=== PATIENT | male | born 1930 | race Caucasian/White ===

== ENCOUNTER 2016-11-15 18:28 | Emergency (ER) | payer BC ==
[~2016-11-15] VITALS: Ht 172.7 cm; Wt 73.9 kg
[~2016-11-15 18:28] MED LIST: ACET325T96 PO; ALFU1TAB2 PO; ALUMSUS17 PO; ARTISOL OPL; ESCI1TAB10 PO; IMD2X PO; MAG OX PO; MOML PO; PRED1SUS3 OPR; SIME125C11 PO; TRIA0.1C20 TOP; TYLOTC500 PO; ULT/50 PO
[2016-11-15 18:40] VITALS: Ht 172.7 cm; Wt 73.9 kg
[2016-11-15] MEDS ORDERED: LEVALBUTEROL 1.25MG/0.5ML NEB INH STA (18:45)
[2016-11-15] MEDS ORDERED: IPRATROPIUM BROMIDE NEB SOLN 0.02% 2.5 ML VIAL INH STA (18:45)
[2016-11-15] MEDS ORDERED: IBUPROFEN 600 MG TAB PO STA (18:45)
[2016-11-15] MEDS ORDERED: SODIUM CHLORIDE 0.9% 1000ML 500 ML IV STA (18:45)
[2016-11-15] MEDS ORDERED: MAGN250T3 PO (19:04)
[2016-11-15] MEDS ORDERED: DUTA0.5C PO (19:04)
[2016-11-15] MEDS ORDERED: KETO0.0216 OPB (19:04)
[2016-11-15] MEDS ORDERED: CHOL100010 PO (19:06)
--- NOTE | 2016-11-15 19:08 | DIAGNOSTIC IMAGING REPORT ---
CHEST ONE VIEW PORTABLE CLINICAL HISTORY: Fever and sepsis COMPARISON STUDY: 10/18/2008 FINDINGS: The heart is normal in size. There is no focal pulmonary consolidation. There is mild interstitial thickening. There are minor left basilar atelectatic changes. No pleural effusions are visualized.[ IMPRESSION: AP portable study. No evidence of overt failure. No evidence of lobar consolidation. Electronically signed by: Nick Hurtado M.D. 11/15/2016 7:07 PM Dictated Date/Time: 11/15/2016 7:06 PM
--- NOTE | 2016-11-15 19:17 | EMERGENCY ROOM VISIT NOTE ---
History Report prepared by Kelvin: Raiza Mclean Under the Supervision of: Dr. Camacho Awan M.D. First contact with patient: 18:43 Chief Complaint: SORETHROAT Stated Complaint: COUGH, FEVER History of Present Illness The patient is a 86 year old male who presents to the Emergency Room with complaints of an improving, productive cough starting 3 days ago. The patient also complains of a runny nose and a sore throat. Today, he started having fever and chills. He received Tylenol about 2 hours ago. He denies chest pain, shortness of breath, nausea, vomiting, diarrhea, urinary symptoms, or any other complaints. He received a flu shot this year. The patient is unsure about any ill contacts. He lives in [facility]. He denies any history of lung disease or heart disease. Source of History: patient Onset: 3 days ago Position: other (global) Quality: other (productive cough) Timing: other (improving) Modifying Factors (Relieving): tylenol Associated Symptoms: + chills, + fevers, + sorethroat, No SOB, No chest pain , No diarrhea, No nausea, No urinary symptoms, No vomiting Review of Systems See HPI for pertinent positives & negatives. A total of 10 systems reviewed and were otherwise negative. Past Medical & Surgical Medical Problems: (1) Abdominal pain (2) Cataract (3) Hemorrhoids (4) Renal cyst Family History Patient reports no known family medical history. Social History Smoking Status: Never Smoker Alcohol Use: none Drug Use: none Housing Status: assisted living Occupation Status: retired Current/Historical Medications Scheduled Acetaminophen (Tylenol), 500 MG PO TID Alfuzosin Hcl (Alfuzosin Hcl Er), 10 MG PO DAILY AFTER SUPPER Artificial Tear Solution (Tears Naturale), 1 DROP OPL QID Cholecalciferol (Vitamin D), 2,000 INTER.UNIT PO DAILY Dutasteride (Avodart), 0.5 MG PO DAILY Escitalopram Oxalate (Lexapro), 20 MG PO DAILY Ketotifen Fumarate (Ophth) (Zaditor 0.025% Oph), 1 DROP OPB BID Loperamide Hcl (Imodium), 2 MG PO DIRECTED Magnesium (Magnesium 250 mg), 250 MG PO DAILY Prednisolone Acetate 1% Oph (Pred Forte 1% Oph), 1 DROP OPR DAILY Simethicone (Simethicone), 125 MG PO BID Scheduled PRN Acetaminophen Tab (Tylenol), 325 MG PO Q4 PRN Allergies Coded Allergies: Acetaminophen (Verified Allergy, Mild, GI SYMPTOMS, 11/15/16) Codeine (Unverified Allergy, Unknown, UNKNOWN, 11/15/16) Oxycodone (Verified Allergy, Unknown, 11/15/16) Physical Exam Vital Signs Date Time Temp Pulse Resp B/P Pulse Ox O2 Delivery O2 Flow Rate FiO2 11/15/16 19:18 72 26 141/67 95 Room Air 11/15/16 18:56 80 11/15/16 18:40 38.5 86 20 100/62 92 Room Air Physical Exam GENERAL: Patient is in no acute distress. HEENT: No acute trauma, normocephalic atraumatic, mild throat erythema without exudate, mucous membranes moist, no nasal congestion, no scleral icterus. NECK: No stridor, no adenopathy, no meningismus, trachea is midline. LUNGS: Wheezing bilaterally with some diminished breath sounds, no crackles, breath sounds are equal. No respiratory distress. Dry cough noted. HEART: Without murmurs gallops or rubs, regular rate and rhythm. ABDOMEN: Soft, nontender, bowel sounds positive, no hernias, no peritonitis. EXTREMITIES: No cyanosis or edema, full range of motion of all the joints without pain or difficulty, no signs for acute trauma. NEUROLOGIC: Oriented x 3, no acute motor or sensory deficits, no focal weakness. SKIN: No rash, no jaundice, no diaphoresis. Medical Decision & Procedures ER Provider Diagnostic Interpretation: X-ray results as stated below per interpretation by me and the radiologist: CHEST ONE VIEW PORTABLE CLINICAL HISTORY: Fever and sepsis COMPARISON STUDY: 10/18/2008 FINDINGS: The heart is normal in size. There is no focal pulmonary consolidation. There is mild interstitial thickening. There are minor left basilar atelectatic changes. No pleural effusions are visualized.[ IMPRESSION: AP portable study. No evidence of overt failure. No evidence of lobar consolidation. Electronically signed by: Nick Hurtado M.D. 11/15/2016 7:07 PM Dictated Date/Time: 11/15/2016 7:06 PM Laboratory Results 11/15/16 19:25 Red Blood Count 4.79, Mean Corpuscular Volume 86.4, Mean Corpuscular Hemoglobin 30.5, Mean Corpuscular Hemoglobin Concent 35.3, Mean Platelet Volume 9.6, Neutrophils (%) (Auto) 70.8, Lymphocytes (%) (Auto) 10.9, Monocytes (%) (Auto) 17.1, Eosinophils (%) (Auto) 0.5, Basophils (%) (Auto) 0.2, Neutrophils # (Auto ) 4.60, Lymphocytes # (Auto) 0.71, Monocytes # (Auto) 1.11, Eosinophils # (Auto ) 0.03, Basophils # (Auto) 0.01 11/15/16 19:25 Test 11/15/16 18:45 11/15/16 19:15 11/15/16 19:25 Influenza Type A Antigen POS for Influ A (NEG) Influenza Type B Antigen Neg for Influ B (NEG) White Blood Count 6.49 K/uL (4.8-10.8) Red Blood Count 4.79 M/uL (4.7-6.1) Hemoglobin 14.6 g/dL (14.0-18.0) Hematocrit 41.4 % (42-52) Mean Corpuscular Volume 86.4 fL (80-100) Mean Corpuscular Hemoglobin 30.5 pg (25-34) Mean Corpuscular Hemoglobin Concent 35.3 g/dl (32-36) Platelet Count 157 K/uL (130-400) Mean Platelet Volume 9.6 fL (7.4-10.4) Neutrophils (%) (Auto) 70.8 % Lymphocytes (%) (Auto) 10.9 % Monocytes (%) (Auto) 17.1 % Eosinophils (%) (Auto) 0.5 % Basophils (%) (Auto) 0.2 % Neutrophils # (Auto) 4.60 K/uL (1.4-6.5) Lymphocytes # (Auto) 0.71 K/uL (1.2-3.4) Monocytes # (Auto) 1.11 K/uL (0.11-0.59) Eosinophils # (Auto) 0.03 K/uL (0-0.5) Basophils # (Auto) 0.01 K/uL (0-0.2) RDW Standard Deviation 41.0 fL (36.4-46.3) RDW Coefficient of Variation 13.0 % (11.5-14.5) Immature Granulocyte % (Auto) 0.5 % Immature Granulocyte # (Auto) 0.03 K/uL (0.00-0.02) Anion Gap 10.0 mmol/L (3-11) Est Creatinine Clear Calc Drug Dose 52.4 ml/min Estimated GFR () 82.0 Estimated GFR (Non- 70.8 BUN/Creatinine Ratio 13.5 (10-20) Lactic Acid Level 0.9 mmol/L (0.4-2.0) Calcium Level 8.4 mg/dl (8.5-10.1) Total Bilirubin 0.5 mg/dl (0.2-1) Aspartate Amino Transf (AST/SGOT) 20 U/L (15-37) Alanine Aminotransferase (ALT/SGPT) 25 U/L (12-78) Alkaline Phosphatase 80 U/L (45-117) Total Protein 6.8 gm/dl (6.4-8.2) Albumin 3.7 gm/dl (3.4-5.0) Globulin 3.1 gm/dl (2.5-4.0) Albumin/Globulin Ratio 1.2 (0.9-2) Laboratory results reviewed by me. Medications Administered Medications (Trade) Dose Ordered Sig/Carla Route Start Time Stop Time Status Last Admin Dose Admin Ibuprofen 600 mg 600 mg NOW STAT PO 11/15/16 18:45 11/15/16 18:52 DC 11/15/16 19:06 600 MG Sodium Chloride (Nss 1000ml) 500 ml @ 999 mls/hr Q31M STAT IV 11/15/16 18:45 11/15/16 19:15 DC 11/15/16 19:07 999 MLS/HR Levalbuterol (Xopenex 1.25MG/ 0.5ML Neb) 1.25 mg NOW STAT INH 11/15/16 18:45 11/15/16 18:53 DC 11/15/16 19:07 1.25 MG Ipratropium [place] (Atrovent 0.02% 0.5MG/2.5ML Neb) 0.5 mg NOW STAT INH 11/15/16 18:45 11/15/16 18:53 DC 11/15/16 19:07 0.5 MG Albuterol (Ventolin Hfa Inhaler) 2 puffs NOW ONCE INH 11/15/16 20:30 11/15/16 20:31 DC 11/15/16 20:47 2 PUFFS ED Course 184: The patient was evaluated in room C12B. A complete history and physical exam was performed. 1844: Ipratropium [place] 0.5 mg INH, Levalbuterol 1.25 mg INH, Sodium Chloride 500 ml @ 999 mls/hr IV, Ibuprofen 600 mg PO 2008: Reevaluated the patient. Discussed results and discharge instructions: He verbalized understanding and agreement. The patient is ready for discharge. 2030: Albuterol 2 puffs INH Medical Decision Differential diagnosis includes but is not limited to bronchitis, pneumonia, influenza, flu-like illness, CHF, pharyngitis, sepsis, anemia, UTI, cellulitis. There is no leukocytosis or concerning anemia. No significant electrolyte abnormality or kidney failure. There is no hepatitis. Lactic acid level is not elevated making sepsis less likely. Chest x-ray does not show pneumonia or CHF. On exam, the patient had some mild pharyngitis, there was no exudate. By exam, there was no cellulitis. Influenza testing did return positive for influenza A. Blood cultures are pending. The patient received IV saline, oral Motrin. He received a DuoNeb and albuterol via [facility]. The patient has influenza A, this explains his presentation. He is not hypoxic , he is not toxic. I do think he can be discharged. He is not a candidate for Tamiflu given the length of his illness. The patient is being discharged with hydration, rest, albuterol, Motrin or Tylenol for fever. If his symptoms worsen , if he feels short of breath, he should return for reassessment. Impression Primary Impression: Influenza A Additional Impressions: Fever Cough Scribe Attestation The scribe's documentation has been prepared under my direction and personally reviewed by me in its entirety. I confirm that the note above accurately reflects all work, treatment, procedures, and medical decision making performed by me. Departure Information Dispostion Home / Self-Care Referrals No Doctor, Assigned (PCP) Kunal Mondragon D.O.Int.Med. Forms HOME CARE DOCUMENTATION FORM, IMPORTANT VISIT INFORMATION Patient Instructions My [facility] Additional Instructions fluids rest tylenol or motrin for fever albuterol 2 puffs every 4 hours for the cough see amrita kenny for a recheck in a few days return for worsening symptoms or shortness of breath Problem Qualifiers
[2016-11-15 19:37] LABS: BASO % 0.2 %; BASO ABS # 0.01 K/uL (0-0.2); COMPLETE YES; EOS % 0.5 %; HEMATOCRIT 41.4 % (42-52); IG% 0.5 %; LYMPH % 10.9 %; LYMPH ABS # 0.71 K/uL (1.2-3.4); MEAN CELL VOLUME 86.4 fL (80-100); MEAN CORPUSCULAR HEMOGLOBIN 30.5 pg (25-34); MEAN CORPUSCULAR HGB CONC 35.3 g/dl (32-36); MEAN PLATELET VOLUME 9.6 fL (7.4-10.4); MONO % 17.1 %; NEUT % 70.8 %; PLATELET COUNT 157 K/uL (130-400); RED BLOOD COUNT 4.79 M/uL (4.7-6.1); WHITE BLOOD COUNT 6.49 K/uL (4.8-10.8)
[2016-11-15 19:55] LABS: BUN/CREATININE RATIO 13.5 (10-20); CALCIUM 8.4 mg/dl (8.5-10.1); CREATININE 0.96 mg/dl (0.60-1.40)
[2016-11-15 19:57] LABS: ALB/GLOB RATIO 1.2 (0.9-2)
[2016-11-15] MEDS ORDERED: ALBUTEROL HFA 8 GM INHALER INH ONE (20:30)
[2016-11-15 20:47] VITALS: BP 150/70; PULSE 68; TEMP 37.6; O2SAT 94
[2016-11-15 21:16] LABS: URINE APPEARANCE CLEAR (CLEAR); URINE BILIRUBIN NEG (NEG); URINE COLOR YELLOW; URINE NITRITE NEG (NEG); URINE PH 7.5 (4.5-7.5); UROBILINOGEN NEG (NEG); ZZUR CULT IF INDIC CLEAN CATCH NO
[2016-11-15 21:19] LABS: MANUAL MICROSCOPIC REQUIRED? NO; REVIEW REQ? NO
== END 2016-11-15 20:57 | disposition home or self-care (01) ==
LOC: C.EDB 18:29 → C.EDC 20:57
DX: J11.1 Influenza due to unidentified influenza virus with other respiratory manifestations (principal); Z79.899 Other long term (current) drug therapy

== ENCOUNTER → 2017-01-25 | Outpatient (CLI) | payer BC ==
[~2017-01-25] MED LIST changes: -ALUMSUS17 PO; +CHOL100010 PO; +DUTA0.5C PO; +KETO0.0216 OPB; -MAG OX PO; +MAGN250T3 PO; -MOML PO; -TRIA0.1C20 TOP; -ULT/50 PO
[2017-01-25 11:44] LABS: BASO % 0.2 %; BASO ABS # 0.01 K/uL (0-0.2); COMPLETE YES; EOS % 3.4 %; HEMATOCRIT 44.2 % (42-52); IG% 0.3 %; LYMPH % 27.7 %; LYMPH ABS # 1.71 K/uL (1.2-3.4); MEAN CELL VOLUME 86.2 fL (80-100); MEAN CORPUSCULAR HEMOGLOBIN 29.6 pg (25-34); MEAN CORPUSCULAR HGB CONC 34.4 g/dl (32-36); MEAN PLATELET VOLUME 10.1 fL (7.4-10.4); MONO % 15.1 %; NEUT % 53.3 %; PLATELET COUNT 175 K/uL (130-400); RED BLOOD COUNT 5.13 M/uL (4.7-6.1); WHITE BLOOD COUNT 6.17 K/uL (4.8-10.8)
[2017-01-25 12:31] LABS: ALT/SGPT 23 U/L (12-78); AST/SGOT 14 U/L (15-37); BLOOD UREA NITROGEN 11 mg/dl (7-18); CALCIUM 8.8 mg/dl (8.5-10.1); CARBON DIOXIDE 30 mmol/L (21-32); CHLORIDE 107 mmol/L (98-107); CREATININE 0.99 mg/dl (0.60-1.40); GLUCOSE 89 mg/dl (70-99); SODIUM 143 mmol/L (136-145)
[2017-01-25 12:42] LABS: ALB/GLOB RATIO 1.2 (0.9-2); ALKALINE PHOSPHATASE 81 U/L (45-117); CHOLESTEROL 182 mg/dl (0-200); CHOLESTEROL/HDL RATIO 4.9; HDL CHOLESTEROL 37 mg/dl; LDL CHOLESTEROL CALCULATED 117 mg/dl; PROSTATE SPECIFIC ANTIGEN 0.285 ng/ml (0.000-4.000); TRIGLYCERIDES 139 mg/dl (0-150); VERY LOW DENSITY LIPOPROT CALC 28 mg/dl
== END | disposition home or self-care (01) ==
LOC: C.LABBC 08:12
PROVIDERS: ATTEND Family Medicine
DX: E78.5 Hyperlipidemia, unspecified (principal); R41.3 Other amnesia; N28.1 Cyst of kidney, acquired; N40.1 Benign prostatic hyperplasia with lower urinary tract symptoms

== ENCOUNTER → 2018-02-13 | Outpatient (CLI) | payer BC ==
[~2018-02-13] MED LIST changes: +ACET-1693 PO; -ACET325T96 PO
[2018-02-13 16:46] LABS: BASO % 0.2 %; BASO ABS # 0.01 K/uL (0-0.2); EOS % 2.7 %; EOS ABS # 0.15 K/uL (0-0.5); HEMATOCRIT 43.7 % (42-52); HEMOGLOBIN 15.3 g/dL (14.0-18.0); IG# 0.04 K/uL (0.00-0.02); LYMPH % 26.9 %; LYMPH ABS # 1.48 K/uL (1.2-3.4); MEAN CELL VOLUME 87.2 fL (80-100); MEAN CORPUSCULAR HEMOGLOBIN 30.5 pg (25-34); MEAN PLATELET VOLUME 10.2 fL (7.4-10.4); MONO % 12.7 %; NEUT % 56.8 %; NEUT ABS # 3.12 K/uL (1.4-6.5); PLATELET COUNT 186 K/uL (130-400); RED CELL DISTRIBUTION WIDTH CV 13.1 % (11.5-14.5); RED CELL DISTRIBUTION WIDTH SD 42.2 fL (36.4-46.3)
[2018-02-13 17:16] LABS: ALBUMIN 3.6 gm/dl (3.4-5.0); ALT/SGPT 18 U/L (12-78); AST/SGOT 15 U/L (15-37); BLOOD UREA NITROGEN 12 mg/dl (7-18); CALCIUM 8.8 mg/dl (8.5-10.1); CARBON DIOXIDE 31 mmol/L (21-32); CREATININE 1.05 mg/dl (0.60-1.40); GLUCOSE 80 mg/dl (70-99); POTASSIUM 4.1 mmol/L (3.5-5.1); SODIUM 139 mmol/L (136-145)
[2018-02-13 17:19] LABS: ALKALINE PHOSPHATASE 84 U/L (45-117); CHOLESTEROL 198 mg/dl (0-200); LDL CHOLESTEROL CALCULATED 136 mg/dl; TOTAL PROTEIN 6.9 gm/dl (6.4-8.2)
== END | disposition home or self-care (01) ==
LOC: C.LABBC 13:57
PROVIDERS: ATTEND Physician Assistant Medical
DX: Z00.00 Encounter for general adult medical examination without abnormal findings (principal); N28.1 Cyst of kidney, acquired; E78.5 Hyperlipidemia, unspecified; K21.9 Gastro-esophageal reflux disease without esophagitis